=== PATIENT | male | born 1980 | race Caucasian/White ===

== ENCOUNTER 2018-09-23 09:21 | Emergency (ER) | payer OTHER ==
[~2018-09-23] VITALS: Ht 180.3 cm; Wt 85.3 kg
[2018-09-23 09:25] VITALS: Ht 180.3 cm; Wt 85.3 kg
[2018-09-23 10:27] VITALS: BP 156/94
== END 2018-09-23 10:27 | disposition home or self-care (01) ==
LOC: ED 09:21
DX: K04.7 Periapical abscess without sinus (principal); K02.9 Dental caries, unspecified
CPT/HCPCS: 99406